=== PATIENT | female | born 1960 | race Caucasian/White ===

== ENCOUNTER 2021-12-08 15:21 | Emergency (ER) | payer MEDICAID ==
[~2021-12-08] VITALS: Ht 160 cm; Wt 140.0 kg
[2021-12-08 16:23] VITALS: BP 162/79
[2021-12-08] MEDS ORDERED: AMOX-100 PO ×2 (18:30)
[2021-12-08] MEDS ORDERED: IBUP-1986 PO (18:30)
[2021-12-08] MEDS ORDERED: ibuprofen tablet 400 MG TABLET PO ONE (18:35)
[2021-12-08] MEDS ORDERED: clindamycin 150mg capsule PO ONE (18:35)
[2021-12-08] MEDS ORDERED: amoxicillin 250mg capsule PO ONE (18:35)
[2021-12-08] MEDS ORDERED: CLIN-97 PO (18:36)
== END 2021-12-08 19:12 | disposition home or self-care (01) ==
LOC: ER 15:50
DX: K04.7 Periapical abscess without sinus (principal); K02.9 Dental caries, unspecified
CPT/HCPCS: 99283